=== PATIENT | male | born 1985 | race Caucasian/White ===

== ENCOUNTER → 2024-03-31 10:15 | Outpatient (CLI) | payer BC, SELFPAY ==
[2024-03-31 11:43] LABS: Influenza A - CEPHEID Flu A POSITIVE (NEGATIVE); Influenza B - CEPHEID Flu B NEGATIVE (NEGATIVE); Respiratory Syncytial Virus Negative (Negative)
[2024-03-31 12:45] LABS: COVID-19 CEPHEID 4-PLEX PCR Negative (Negative)
== END ==
PROVIDERS: Visit Provider Physician Assistant
DX: R05.1 Acute cough (principal); J06.9 Acute upper respiratory infection, unspecified
CPT/HCPCS: 0241U

== ENCOUNTER → 2025-04-27 09:07 | Outpatient (CLI) | payer BC, SELFPAY ==
[2025-04-27 09:51] LABS: Influenza A - CEPHEID Flu A NEGATIVE (NEGATIVE); Influenza B - CEPHEID Flu B NEGATIVE (NEGATIVE)
[2025-04-27 10:15] LABS: COVID-19 CEPHEID 4-PLEX PCR Negative (Negative)
== END ==
PROVIDERS: Visit Provider Chiropractor
DX: R05.1 Acute cough (principal)
CPT/HCPCS: 87637